=== PATIENT | male | born 1955 | race Caucasian/White ===

== ENCOUNTER → 2018-07-01 | Outpatient (CLI) | payer BC ==
--- NOTE | 2018-07-01 08:15 | Diagnostic Imaging Report ---
Exam: Left hip 2 views History: Pain Comparison: None. Findings: No fracture or malalignment. Advanced degenerative arthrosis of the left hip with joint space narrowing and subchondral sclerosis. No abnormal soft tissue calcification or soft tissue defect. Impression: No acute osseous abnormality Advanced left hip degenerative arthrosis. Signed by: Dr. Omer Spann M.D. on 07/01/2018 8:12 AM
== END ==
LOC: RAD 07:23
PROVIDERS: ATTEND Family Medicine
DX: M25.552 Pain in left hip (principal); M16.12 Unilateral primary osteoarthritis, left hip

== ENCOUNTER → 2020-02-05 | Outpatient (CLI) | payer BC ==
--- NOTE | 2020-02-05 14:19 | Diagnostic Imaging Report ---
Chest, 2 views, 02/05/2020. History: Preop, hip surgery. Comparison: None available. Findings: The cardiomediastinal silhouette and pulmonary vasculature are within normal limits. There is minimal biapical pleural thickening. There is tortuosity of the descending thoracic aorta. The lungs are clear without evidence of consolidation or pleural effusion. Degenerative changes are present throughout the thoracic spine. There are no acute osseous or soft tissue abnormalities. Impression: No acute cardiopulmonary abnormality. Signed by: Renny Negro on 02/05/2020 2:15 PM
== END ==
LOC: RAD 12:53
PROVIDERS: ATTEND Family Medicine
DX: Z01.810 Encounter for preprocedural cardiovascular examination (principal)
CPT/HCPCS: 71046

== ENCOUNTER 2020-02-24 08:11 | Observation (INO) | payer BC ==
[2020-02-20 10:54] LABS: BASOPHILS # (AUTO) 0.1 (0.0-0.1); BASOPHILS % 0.8 % (0.0-1.0); EOSINOPHILS # (AUTO) 0.1 (0.0-0.4); EOSINOPHILS % 1.5 % (0.0-6.0); HEMATOCRIT 43.5 % (38.2-49.6); HEMOGLOBIN 14.3 g/dL (14.0-18.0); LYMPHOCYTES # (AUTO) 1.4 (1.0-3.2); LYMPHOCYTES % 16.5 % (18.0-39.1); MEAN CORPUSCULAR HEMOGLOBIN 27.6 pg (28-32); MEAN CORPUSCULAR HGB CONC 32.9 g/dL (31-35); MONOCYTES # (AUTO) 1.1 (0.2-0.8); MONOCYTES % 12.3 % (4.4-11.3); NEUTROPHILS # (AUTO) 5.8 (2.1-6.9); NEUTROPHILS % 68.1 % (38.7-80.0); PLATELET COUNT 341 x10e3/uL (140-360); RED BLOOD COUNT 5.18 x10e6/uL (4.3-5.7); RED CELL DISTRIBUTION WIDTH 15.5 % (11.7-14.4)
[~2020-02-24] VITALS: Ht 182.9 cm; Wt 79.8 kg
[~2020-02-24 08:11] MED LIST: AMLODIPINE BESYL5 MG PO; ATORVASTATIN CA20 MG PO; NAPROXEN250 MG PO; OMEPRAZOLE40 MG
[2020-02-24] MEDS ORDERED: ROPIVACAINE 246.25 MG, EPINEPHRINE HCL 1:1000 1ML 0.5 MG, CLONIDINE HCL 0.08 MG, KETORO... INJ ONE ×5 (08:30)
[2020-02-24] MEDS ORDERED: DEXAMETHASONE SOD PHOS 10 MG/1 ML VIAL ONE (08:57)
[2020-02-24] MEDS ORDERED: CELECOXIB 200 MG CAP ONE (08:57)
[2020-02-24] MEDS ORDERED: CEFAZOLIN SOD 1 GM/NS 50ML 100 ML IV ONE (08:57)
[2020-02-24] MEDS ORDERED: GABAPENTIN 300 MG CAP ONE (08:57)
[2020-02-24] MEDS ORDERED: BUPIVACAINE 7.5MG/ML /DEXTROSE 82.5MG/ML 2 ML AMP INJ ONE (09:05)
[2020-02-24] MEDS ORDERED: VANCOMYCIN HCL 1,000 MG ONE (10:23)
[2020-02-24] MEDS ORDERED: TRANEXAMIC ACID 1,000 MG/10 ML ML ONE (10:23)
[2020-02-24] MEDS ORDERED: SODIUM CHLORIDE 0.9% 500ML 500 ML ONE (10:23)
[2020-02-24] MEDS ORDERED: DIPHENHYDRAMINE HCL INJ 50 MG/ML VIAL IV PRN (12:45)
[2020-02-24] MEDS ORDERED: KETOROLAC TROMETHAMINE 30 MG/ML VIAL IV PRN (12:45)
[2020-02-24] MEDS ORDERED: HYDROCODONE/APAP 5MG-325MG TAB PO PRN (12:45)
[2020-02-24] MEDS ORDERED: ACETAMINOPHEN 650 MG SUPP PR PRN (12:45)
[2020-02-24] MEDS ORDERED: ONDANSETRON HCL INJ 2MG/ML 2ML 2 MG/ML VIAL IV PRN (12:45)
[2020-02-24] MEDS ORDERED: DOCUSATE SODIUM 100 MG CAP PO PRN (12:45)
[2020-02-24] MEDS ORDERED: PROPOFOL IV EMULSION 10 MG/ML 20 ML VIAL ONE (13:32)
[2020-02-24] MEDS ORDERED: LIDOCAINE HCL 2% LOCAL INJ 5 ML SDV VIAL INJ ONE (13:32)
[2020-02-24] MEDS ORDERED: SEVOFLURANE INHAL SOLN 250 ML PEN BTL ONE (13:32)
[2020-02-24 15:49] VITALS: BP 128/85
[2020-02-24 15:50] VITALS: BP 128/85
[2020-02-24 16:04] VITALS: BP 128/85
[2020-02-24 16:25] VITALS: BP 128/85
[2020-02-24] MEDS: SODIUM CHLORIDE 0.9% 1000ML 1,000 ML IV SCH (16:39)
[2020-02-24] MEDS ORDERED: FENTANYL CITRATE/PF 100MCG/2 ML INJ ONE (17:50)
[2020-02-24] MEDS ORDERED: MIDAZOLAM HCL 2 MG/2 ML VIAL ONE (17:50)
[2020-02-24] MEDS: CEFAZOLIN SOD 1 GM/NS 50ML 50 ML IV SCH (17:58)
[2020-02-24] MEDS: CELECOXIB 200 MG CAP PO SCH (17:58)
[2020-02-24 20:00] VITALS: BP 108/74
[2020-02-24 20:38] VITALS: BP 108/74
[2020-02-24] MEDS ORDERED: ATORVASTATIN 20 MG TAB PO SCH (21:00)
[2020-02-24] MEDS ORDERED: ZOLPIDEM TARTRATE 5 MG TAB PO PRN (21:00)
[2020-02-24] MEDS: ASPIRIN 325 MG TAB PO SCH (21:09)
[2020-02-25] VITALS: BP 119/81
[2020-02-25] MEDS: SODIUM CHLORIDE 0.9% 1000ML 1,000 ML IV SCH ×2 (01:30→10:51)
[2020-02-25] MEDS: CEFAZOLIN SOD 1 GM/NS 50ML 50 ML IV SCH ×2 (01:53→08:53)
[2020-02-25 04:00] VITALS: BP 119/93
[2020-02-25 05:14] LABS: HEMATOCRIT 38.1 % (38.2-49.6); HEMOGLOBIN 12.7 g/dL (14.0-18.0)
[2020-02-25 08:06] VITALS: BP 125/85
[2020-02-25] MEDS: ASPIRIN 325 MG TAB PO SCH (08:53)
[2020-02-25] MEDS: CELECOXIB 200 MG CAP PO SCH (08:53)
[2020-02-25] MEDS ORDERED: AMLODIPINE BESYLATE 5 MG TAB PO SCH (09:00)
[2020-02-25 09:07] VITALS: BP 125/85
[2020-02-25] MEDS ORDERED: ONDANSETRON HCL 4 MG ORAL DISINTEGRATING TAB PO PRN (10:00)
[2020-02-25 11:58] VITALS: BP 114/80
[2020-02-25] MEDS ORDERED: ACETAMINOPHEN 1000 MG/100 ML IV PRN (12:45)
== END 2020-02-25 12:37 | disposition home or self-care (01) ==
LOC: OR 08:11 → PACU V 12:35 → MED/SURG 14:56 → UNDODISOB 02-25 10:07
PROVIDERS: ADMIT Specialist; ATTEND Specialist
DX: M16.12 Unilateral primary osteoarthritis, left hip (principal); D64.9 Anemia, unspecified; E78.00 Pure hypercholesterolemia, unspecified; I10 Essential (primary) hypertension; Z20.828 Contact with and (suspected) exposure to other viral communicable diseases
CPT/HCPCS: 27130; 36415 ×2; 72170; 85014; 85018; 85025; 86850; 86900; 86920; 97110; 97116; 97161; 97530; C1713 ×2; C1776 ×2; G0378 ×2; J0171; J0690 ×2; J1100; J1885; J2001; J2704; J2795; J3370; J7030; J7040; U0002; J2250; J3010